=== PATIENT | female | born 1940 | race Caucasian/White ===

== ENCOUNTER → 2018-01-03 07:54 | Outpatient (CLI) | payer MEDICARE, SELFPAY ==
[2018-01-03 08:35] LABS: Add Manual Diff / Slide Review NO; Basophils Percent Auto 0.8 % (0-2); Eosinophils Percent Auto 2.4 % (2-4); Hemoglobin 12.7 g/dL (12.0-16.0); Lymphocytes Percent Auto 45.1 % (25-40); Mean Corpuscular HGB Conc 33.3 % (30-36); Mean Corpuscular Hemoglobin 30.3 PG (26-34); Monocytes Percent Auto 11.1 % (3-14); Neutrophils Absolute Auto 1600 /uL (3000-5900); Neutrophils Percent Auto 40.6 % (50-75); Platelet Count 239 X10^3/uL (150-400); Red Blood Cell Count 4.17 X10^6/uL (4.0-5.2); Red Cell Distribution Width 14.1 % (11.6-14.8); White Blood Cell Count 3.8 X10^3/uL (4.5-11.0)
[2018-01-03 09:19] LABS: Alanine Aminotransferase 28 IU/L (9-52); Albumin Globulin Ratio 1.5 (1.0-2.8); Alkaline Phosphatase 60 U/L (38-126); Aspartate Aminotransferase 22 IU/L (14-36); BUN Creatinine Ratio 22.9 (6-22); Bilirubin Total 0.5 mg/dL (0.2-1.3); Blood Urea Nitrogen 16 mg/dL (7-17); Calcium 9.2 mg/dL (8.4-10.2); Carbon Dioxide 28 mmol/L (22-32); Chloride 100 mmol/L (98-107); Cholesterol 204 mg/dL (140-199); Estimated Glomerular Filt Rate > 60.0 mL/min (>60); Globulin 2.7 g/dL (1.7-4.1); Glucose 90 mg/dL (80-110); HDL Cholesterol 97 mg/dL (40-60); HEMOLYSIS 21 (0-50); LDL Cholesterol Calculated 87 mg/dL (<100); Potassium 4.5 mmol/L (3.4-5.1); Sodium 137 mmol/L (137-145); Total Protein 6.7 g/dL (6.3-8.2); Triglycerides 102 mg/dL (35-150)
== END ==
PROVIDERS: PCP Internal Medicine; Visit Provider Internal Medicine
DX: E78.2 Mixed hyperlipidemia (principal); I95.9 Hypotension, unspecified
CPT/HCPCS: 36415; 80053; 80061; 85025

== ENCOUNTER → 2018-03-20 15:49 | Outpatient (CLI) | payer MEDICARE, SELFPAY ==
--- NOTE | 2018-03-20 | DI.MRI.S_ITS ---
PROCEDURE: MR LUMBAR SPINE WO CON INDICATIONS: Left leg pain TECHNIQUE: Noncontrast sagittal T1 spin echo and T2 fast echo, sagittal STIR, axial T1 and T2 fast spin echo through the lumbar spine. In cases with scoliosis, additional coronal T2 fast spin echo may be performed. COMPARISON: [facility], CR, XR LUMBAR SPINE WITH OLBIQUES PLUS FLEXION EXTENSION, 03/05/2018, 10:22. FINDINGS: Image quality: Excellent. Alignment and Curvature: There is normal bony alignment. Bone Marrow: Marrow is of normal overall signal. No acute vertebral body compression fractures. Spinal Cord: Conus medullaris terminates at the L1 level. Visualized cord demonstrates normal signal and size. Paraspinous Soft Tissues: No paravertebral masses. L1-L2: Preserved disc height. Mild disc desiccation. There is mild posterior disc bulge. The central canal is patent. No foraminal stenosis. L2-L3: Moderate loss of disc height and disc desiccation. There is broad posterior disc bulge and disc osteophyte complex. Superimposed right posterior paramedian disc protrusion. Hypertrophy of ligamentum flavum. The central canal is a moderate to severely narrowed. Moderate right and mild left foraminal stenosis. L3-L4: Mild loss of disc height and disc desiccation. There is broad posterior disc bulge and disc osteophyte complex. Hypertrophy of ligamentum flavum. The central canal is mildly narrowed. Mild bilateral foraminal stenosis. L4-L5: Mild loss of disc height and disc desiccation. There is broad posterior disc bulge and disc-osteophyte complex. Mild bilateral facet arthropathy and moderate hypertrophy of ligamentum flavum. The central canal is mildly narrowed. Moderate left and mild right foraminal stenosis. L5-S1: Mild loss of disc height and disc desiccation. There is broad posterior disc bulge and disc osteophyte complex. Mild bilateral facet arthropathy. The central canal is patent. Mild bilateral foraminal stenosis. IMPRESSION: 1. Multilevel degenerative disc disease and facet arthropathy as described. 2. [id number] central canal stenosis at L2-L3, and mild central canal stenosis at L3-L4 and L4-L5. 3. Multilevel foraminal stenosis as described. Dictated by: Lisset Soni M.D. on 03/20/2018 at 16:58 Transcribed by: CINDY on 03/20/2018 at 17:34 Approved by: Lisset Soni M.D. on 03/21/2018 at 9:09
== END ==
PROVIDERS: Family Provider Internal Medicine; PCP Internal Medicine; Visit Provider Physical Medicine & Rehabilitation Pain Medicine
DX: M54.5 Low back pain (principal); M79.605 Pain in left leg; M51.36 Other intervertebral disc degeneration, lumbar region; M48.061 Spinal stenosis, lumbar region without neurogenic claudication
CPT/HCPCS: 72148

== ENCOUNTER → 2019-06-21 09:11 | Outpatient (CLI) | payer MEDICARE, SELFPAY ==
[2019-06-21 10:10] LABS: Alanine Aminotransferase 22 IU/L (<35); Albumin 4.4 g/dL (3.5-5.0); Albumin Globulin Ratio 1.5 (1.0-2.8); Alkaline Phosphatase 79 U/L (38-126); Aspartate Aminotransferase 31 IU/L (14-36); BUN Creatinine Ratio 18.8 (6-22); Bilirubin Total 0.6 mg/dL (0.2-1.3); Blood Urea Nitrogen 15 mg/dL (7-17); Calcium 9.5 mg/dL (8.4-10.2); Carbon Dioxide 28 mmol/L (22-32); Chloride 104 mmol/L (98-107); Cholesterol 222 mg/dL (140-199); Estimated Glomerular Filt Rate > 60.0 mL/min (>60); Glucose 99 mg/dL (80-110); HDL Cholesterol 94 mg/dL (40-60); HEMOLYSIS < 15 (0-50); LDL Cholesterol Calculated 113 mg/dL (<100); Potassium 4.9 mmol/L (3.4-5.1); Sodium 140 mmol/L (137-145); Total Protein 7.4 g/dL (6.3-8.2); Triglycerides 76 mg/dL (35-150)
== END ==
PROVIDERS: PCP Internal Medicine; Visit Provider Internal Medicine
DX: Z13.1 Encounter for screening for diabetes mellitus (principal); Z13.220 Encounter for screening for lipoid disorders; Z13.6 Encounter for screening for cardiovascular disorders; E78.2 Mixed hyperlipidemia
CPT/HCPCS: 36415; 80053; 80061

== ENCOUNTER → 2020-06-19 07:54 | Outpatient (CLI) | payer MEDICARE, SELFPAY ==
[2020-06-19 09:01] LABS: Alanine Aminotransferase 28 IU/L (<35); Albumin 4.1 g/dL (3.5-5.0); Albumin Globulin Ratio 1.4 (1.0-2.8); Alkaline Phosphatase 71 U/L (38-126); Aspartate Aminotransferase 30 IU/L (14-36); BUN Creatinine Ratio 23.4 (6-22); Bilirubin Total 0.5 mg/dL (0.2-1.3); Blood Urea Nitrogen 18 mg/dL (7-17); Calcium 9.6 mg/dL (8.4-10.2); Carbon Dioxide 31 mmol/L (22-32); Chloride 104 mmol/L (98-107); Cholesterol 267 mg/dL (140-199); Estimated Glomerular Filt Rate > 60.0 mL/min (>60); Glucose 101 mg/dL (80-110); HDL Cholesterol 105 mg/dL (40-60); HEMOLYSIS < 15 (0-50); LDL Cholesterol Calculated 138 mg/dL (<100); Potassium 4.9 mmol/L (3.4-5.1); Sodium 136 mmol/L (137-145); Total Protein 7.1 g/dL (6.3-8.2); Triglycerides 121 mg/dL (35-150)
== END ==
PROVIDERS: PCP Internal Medicine; Referring Provider Internal Medicine; Visit Provider Internal Medicine
DX: E78.2 Mixed hyperlipidemia (principal)
CPT/HCPCS: 36415; 80053; 80061

== ENCOUNTER → 2021-06-25 07:25 | Outpatient (CLI) | payer MEDICARE, SELFPAY ==
[2021-06-25 09:21] LABS: Alanine Aminotransferase 21 IU/L (<35); Albumin Globulin Ratio 1.5 (1.0-2.8); Alkaline Phosphatase 59 U/L (38-126); Aspartate Aminotransferase 26 IU/L (14-36); BUN Creatinine Ratio 23.6 (6-22); Bilirubin Total 0.5 mg/dL (0.2-1.3); Blood Urea Nitrogen 17 mg/dL (7-17); Calcium 9.3 mg/dL (8.4-10.2); Carbon Dioxide 29 mmol/L (22-32); Chloride 103 mmol/L (98-107); Cholesterol 202 mg/dL (140-199); Estimated Glomerular Filt Rate > 60.0 mL/min (>60); Globulin 2.7 g/dL (1.7-4.1); Glucose 95 mg/dL (80-110); HDL Cholesterol 95 mg/dL (40-60); HEMOLYSIS < 15 (0-50); LDL Cholesterol Calculated 83 mg/dL (<100); Potassium 4.4 mmol/L (3.4-5.1); Sodium 137 mmol/L (137-145); Total Protein 6.7 g/dL (6.3-8.2); Triglycerides 119 mg/dL (35-150)
== END ==
PROVIDERS: PCP Internal Medicine; Referring Provider Internal Medicine; Visit Provider Internal Medicine
DX: E78.2 Mixed hyperlipidemia (principal)
CPT/HCPCS: 36415; 80053; 80061

== ENCOUNTER → 2021-07-06 13:37 | Outpatient (CLI) | payer MEDICARE, SELFPAY ==
--- NOTE | 2021-07-06 13:38 | DI.US.S_ITS ---
PROCEDURE: US ABDOMEN LIMITED INDICATIONS: RIGHT UPPER QUADRANT PAIN TECHNIQUE: Real-time focused scanning was performed of the abdomen, with image documentation. COMPARISON: None. FINDINGS: There is a mobile gallstone measuring approximately 2 cm in the gallbladder. No gallbladder wall thickening or pericholecystic fluid. The superintendent recreation reports a negative sonographic Payne's sign. The gallstone results in shadowing which obscures the common hepatic duct and common bile duct. No intrahepatic biliary ductal dilatation identified. Diffusely increased hepatic parenchymal echogenicity consistent with hepatic steatosis. The pancreatic head is subjectively mildly enlarged with indistinctness of the pancreatic duct. The pancreatic body and tail are not identified due to obscuration by bowel gas. IMPRESSION: Subjectively prominent appearance of the pancreatic head with an ill-defined appearance and poor delineation of the pancreatic duct. Consider a CT of the abdomen and pelvis for further characterization. Cholelithiasis with a large mobile gallstone measuring 2 cm. No findings of cholecystitis. Dictated by: Chidi Traore M.D. on 07/06/2021 at 16:36 Approved by: Chidi Traore M.D. on 07/06/2021 at 16:38
== END ==
PROVIDERS: PCP Internal Medicine; Referring Provider Internal Medicine; Visit Provider Internal Medicine
DX: R10.11 Right upper quadrant pain (principal); K80.20 Calculus of gallbladder without cholecystitis without obstruction
CPT/HCPCS: 76705

== ENCOUNTER → 2021-08-23 07:59 | Outpatient (CLI) | payer MEDICARE, SELFPAY ==
[2021-08-23 09:50] LABS: BUN Creatinine Ratio 22.1 (6-22); Blood Urea Nitrogen 19 mg/dL (7-17); Estimated Glomerular Filt Rate > 60.0 mL/min (>60)
== END ==
PROVIDERS: PCP Internal Medicine; Referring Provider Internal Medicine; Visit Provider Internal Medicine
DX: K80.20 Calculus of gallbladder without cholecystitis without obstruction (principal); R10.11 Right upper quadrant pain
CPT/HCPCS: 36415; 82565; 84520

== ENCOUNTER → 2021-08-24 07:26 | Outpatient (CLI) | payer MEDICARE, SELFPAY ==
--- NOTE | 2021-08-24 07:30 | DI.CT.S_ITS ---
PROCEDURE: CT ABDOMEN PELVIS W CON INDICATIONS: abd pain, gallstone, abnormal pancreas on US TECHNIQUE: After the administration of oral and IV contrast, axial sections were acquired from the lung bases to the pubic symphysis. Coronal and sagittal reformats were performed. For radiation dose reduction, the following was used: automated exposure control, adjustment of mA and/or kV according to patient size. COMPARISON: [facility], US, US ABDOMEN LIMITED, 07/06/2021, 15:41. [facility], CT, ABDOMEN/PELVIS WITH CONTRAST, 04/03/2007, 10:33. FINDINGS: Image quality: Excellent. Lung bases: Lung bases are clear. Small hiatal hernia. Heart: No significant findings. ABDOMEN: Liver: Normal size. Mild hepatic steatosis. Gallbladder: There is a calcified gallstone. No gallbladder wall thickening or pericholecystic fluid. Biliary ducts: No intrahepatic biliary dilation. Common bile duct measures 7 mm, which is at upper limits of normal. Pancreas: Pancreas is normal in morphology. No pancreatic mass. Prominent pancreatic duct measuring up to 2.3 mm. A 0.7 x 1.1 cm cyst is seen in the pancreatic uncinate process, new since the last exam dated 04/03/2007. Appendix is normal. Spleen: Normal size. There are multiple calcified granulomas in spleen. Adrenal Glands: Mild bilateral adrenal thickening without discrete adrenal mass. Kidneys and Ureters: Unremarkable. Stomach and Bowel: Stomach is mildly distended with an air-fluid level. Gastric antrum is mildly thickened. Small bowel loops and colon are unremarkable. Moderate amount of stool in colon. Peritoneum: There is mesenteric stranding. No abnormal intraperitoneal fluid. No free air. Ventral Wall: No hernia. Abdominal Nodes: No retroperitoneal or mesenteric adenopathy by size criteria. Slightly prominent mesenteric lymph nodes are noted with associated mesenteric stranding. Vessels: Aorta and inferior vena cava are normal in size. PELVIS: Pelvic Organs: Uterus is normal in size. There is a 1.8 x 2.4 cm heterogeneously enhancing mass in uterus, most likely a uterine fibroid. Bladder: Unremarkable. Pelvic Nodes: No enlarged lymph nodes. Miscellaneous: No inguinal hernias are seen. Bones: Moderate to severe degenerative changes are present in lumbar spine. IMPRESSION: 1. There is a 0.7 x 1.1 cm cyst in the uncinate process of pancreas, which is new since 04/03/2007. Differential diagnosis include a benign cyst versus a cystic neoplasm such as IPMN. Command a short-term follow-up pancreatic protocol MRI or CT to document stability. 2. Cholelithiasis. 3. 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 4. Mildly distended stomach with an air-fluid level. There is mild gastric antral thickening, which could be secondary to gastritis or artifact. 5. Hepatic steatosis. 6. Small hiatal hernia. 7. A 1.8 x 2.4 cm heterogeneous enhancing mass in uterus, most likely a uterine fibroid. Recommend a pelvic CT for follow-up evaluation. 8. Multiple calcified granulomas in spleen. Dictated by: Lisset Soni M.D. on 08/24/2021 at 8:35 Approved by: Lisset Soni M.D. on 08/24/2021 at 11:17
== END ==
PROVIDERS: PCP Internal Medicine; Referring Provider Internal Medicine; Visit Provider Internal Medicine
DX: R94.8 Abnormal results of function studies of other organs and systems (principal); K86.2 Cyst of pancreas; K80.20 Calculus of gallbladder without cholecystitis without obstruction; N85.9 Noninflammatory disorder of uterus, unspecified; D73.89 Other diseases of spleen; R10.11 Right upper quadrant pain; K76.0 Fatty (change of) liver, not elsewhere classified; K44.9 Diaphragmatic hernia without obstruction or gangrene
CPT/HCPCS: 74177; Q9967

== ENCOUNTER → 2021-12-17 11:00 | Outpatient (CLI) | payer MEDICARE, SELFPAY ==
--- NOTE | 2021-12-17 11:02 | DI.MRI.S_ITS ---
PROCEDURE: MR ABDOMEN WO/W CON INDICATIONS: pancreatic mass TECHNIQUE: Coronal HASTE, axial 2D FLASH in- and [id number]; axial breath-hold T2 FSE with fat saturation from the hepatic dome to the iliac crests. Oblique coronal thin-slice and radial thick slab HASTE through the biliary system. Dynamic axial VIBE during administration of contrast. Post-contrast coronal VIBE or 2D FLASH with fat saturation from the hepatic dome to the iliac crests. Optional diffusion weighted imaging and ADC may be performed. COMPARISON: [facility], US, US ABDOMEN LIMITED, 07/06/2021, 15:41. [facility], CT, CT ABDOMEN PELVIS W CON, 08/24/2021, 7:38. FINDINGS: Image quality: Excellent. Pancreas and biliary system: In the head of the pancreas, there is a cystic mass measuring about 1.1 by 1.0 by 0.9 cm with a few fine internal septations. There is a questionable connection to a nondilated accessory duct in the uncinate process. Postcontrast, there is no internal or nodular enhancement. Septations are isoenhancing to adjacent pancreas. No increased mural enhancement. There is no pancreatic ductal, intra or extrahepatic biliary ductal dilatation. The common duct tapers normally to the ampulla. There are no intrinsic filling defects. There is a very low insertion of the cystic duct on the common duct. Solid organs: Liver is normal in size and enhancement. Gallbladder is partially decompressed, demonstrates a normal wall thickness, and contains nonobstructing stone in the mid body measuring 1.7 cm. Spleen is normal in size and enhancement. No adrenal nodules. Kidneys are normal in size and enhancement, without hydronephrosis. Nodes and vessels: No retroperitoneal or mesenteric adenopathy by size criteria. Mildly prominent flat lymph nodes are present within the central small bowel mesentery surrounded by fat stranding. Aorta and inferior vena cava are normal in size. Bowel and peritoneum: There is trace fluid centrally in the presacral region and extending anteriorly into the mesentery, uncertain etiology. Small hiatal hernia is present. Visible bowel loops appear normal without obstruction. There is encapsulation and fat stranding at the base of the mesentery as seen by CT. Lung bases: No basal pleural effusions. Heart size is normal. Bones and soft tissues: No ventral hernias. Bone marrow is normal in overall signal. IMPRESSION: 1. Finally septated 1.1 cm cystic pancreatic mass with probable communication to a nondilated accessory duct in the uncinate process. Differential diagnosis includes IPMN or tiny serous cystadenoma. Initial follow-up in six months is recommended to document stability. 2. Cholelithiasis. 3. Findings of mesenteric panniculitis. 4. Trace lower midline retroperitoneal fluid of uncertain etiology. Correlate clinically and recommend attention to this area on follow-up studies. Dictated by: Liz Truong M.D. on 12/17/2021 at 13:01 Approved by: Liz Truong M.D. on 12/17/2021 at 13:50
== END ==
PROVIDERS: PCP Internal Medicine; Referring Provider Internal Medicine; Visit Provider Internal Medicine
DX: K86.89 Other specified diseases of pancreas (principal); K80.20 Calculus of gallbladder without cholecystitis without obstruction; K65.4 Sclerosing mesenteritis
CPT/HCPCS: 74183

== ENCOUNTER → 2022-06-14 11:29 | Outpatient (CLI) | payer MEDICARE, SELFPAY ==
[2022-06-14 13:00] LABS: BUN Creatinine Ratio 24.3 (6-22); Blood Urea Nitrogen 18 mg/dL (7-17); Calcium 9.5 mg/dL (8.4-10.2); Carbon Dioxide 28 mmol/L (22-32); Chloride 102 mmol/L (98-107); Estimated Glomerular Filt Rate > 60 mL/min (>60); Glucose 95 mg/dL (80-110); HEMOLYSIS < 15 (0-50); Potassium 4.5 mmol/L (3.4-5.1); Sodium 139 mmol/L (137-145)
== END ==
PROVIDERS: PCP Internal Medicine; Referring Provider Internal Medicine; Visit Provider Internal Medicine
DX: Z01.812 Encounter for preprocedural laboratory examination (principal)
CPT/HCPCS: 36415; 80048

== ENCOUNTER → 2022-06-16 09:56 | Outpatient (CLI) | payer MEDICARE, SELFPAY ==
--- NOTE | 2022-06-16 | DI.CT.S_ITS ---
PROCEDURE: CT ABDOMEN PANCREATIC PROTOCOL INDICATIONS: pancreatic mass TECHNIQUE: After the administration of intravenous contrast, 3 mm thick pancreatic-phase images acquired from the diaphragm to the iliac crests. 3 mm thick coronal and sagittal reformats were performed. For radiation dose reduction, the following was used: automated exposure control, adjustment of mA and/or kV according to patient size. COMPARISON: [facility], CT, CT ABDOMEN PELVIS W CON, 08/24/2021, 7:38. [facility], MR, MR ABDOMEN WO/W CON, 12/17/2021, 11:52. FINDINGS: Image quality: Adequate. Lung bases: No pleural effusion. Pancreas: Redemonstrated cyst at the pancreatic head/uncinate process, approximately 1.3 x 0.8 cm (series 2, image 39) unchanged in size when remeasured on the prior MRI. No dilation of the main pancreatic duct. Suspect that pancreas divisum variant anatomy is present. Other solid organs: Liver is normal in size and enhancement. Cholelithiasis present as before. Biliary system is non dilated. Scattered splenic calcifications likely representing granulomata. No adrenal nodules. Kidneys are normal in size and enhancement, without hydronephrosis. Peritoneum and bowel: Visualized large and small bowel is non-dilated. 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 IMPRESSION: Previously demonstrated cystic lesion at the pancreatic head/uncinate process is not significantly changed in the interval. As described previously, it could represent a side branch IPMN but other cystic neoplasms are not excluded. Per ACR incidental findings guidelines, imaging follow-up is recommended in 2 years, could be performed sooner at clinical discretion. Dictated by: Coy Wilkinson M.D. on 06/16/2022 at 17:53 Approved by: Coy Wilkinson M.D. on 06/16/2022 at 18:15
== END ==
PROVIDERS: PCP Internal Medicine; Referring Provider Internal Medicine; Visit Provider Internal Medicine
DX: K86.89 Other specified diseases of pancreas (principal)
CPT/HCPCS: 74160; Q9967

== ENCOUNTER → 2023-05-17 09:45 | Outpatient (CLI) | payer MEDICARE, SELFPAY ==
[2023-05-17 14:47] LABS: Influenza A - CEPHEID Flu A NEGATIVE (NEGATIVE); Influenza B - CEPHEID Flu B NEGATIVE (NEGATIVE); Respiratory Syncytial Virus Negative (Negative)
[2023-05-17 15:17] LABS: COVID-19 CEPHEID 4-PLEX PCR Negative (Negative)
== END ==
PROVIDERS: PCP Internal Medicine; Visit Provider Physician Assistant
DX: R06.02 Shortness of breath (principal)
CPT/HCPCS: 0241U

== ENCOUNTER → 2023-05-17 09:51 | Outpatient (CLI) | payer MEDICARE, SELFPAY ==
--- NOTE | 2023-05-17 09:53 | DI.RAD.S_ITS ---
PROCEDURE: XR CHEST 2V INDICATIONS: SOB last week, hx latent TB TECHNIQUE: 2 views of the chest were acquired. COMPARISON: [facility], , CHEST 2 VIEW, 11/11/2016, 11:07. FINDINGS: Surgical changes and devices: None. Lungs and pleura: Lungs are clear. No pleural effusions or pneumothorax. Mediastinum: Mediastinal contours are normal. Heart size is normal. Bones and chest wall: No suspicious bony abnormalities. Soft tissues appear unremarkable. IMPRESSION: No acute cardiopulmonary findings. Dictated by: Mar Houston M.D. on 05/17/2023 at 12:30 Approved by: Mar Houston M.D. on 05/17/2023 at 12:32
== END ==
PROVIDERS: PCP Internal Medicine; Referring Provider Physician Assistant; Visit Provider Physician Assistant
DX: Z22.7 Latent tuberculosis (principal); R06.02 Shortness of breath
CPT/HCPCS: 0241U; 71046; 93005

== ENCOUNTER → 2023-06-12 08:02 | Outpatient (CLI) | payer MEDICARE, SELFPAY ==
[2023-06-12 08:35] LABS: Add Manual Diff / Slide Review NO; Basophils Absolute Auto 0 /uL (0-100); Basophils Percent Auto 0.9 % (0-2); Eosinophils Absolute Auto 100 /uL (0-450); Hematocrit 38.5 % (36-46); Hemoglobin 12.9 g/dL (12.0-16.0); Lymphocytes Absolute Auto 1700 /uL (1100-4500); Lymphocytes Percent Auto 38.3 % (25-40); Mean Corpuscular HGB Conc 33.5 % (30-36); Mean Corpuscular Hemoglobin 30.1 PG (26-34); Monocytes Absolute Auto 500 /uL (0-900); Monocytes Percent Auto 11.1 % (3-14); Neutrophils Absolute Auto 2100 /uL (1500-7000); Neutrophils Percent Auto 47.7 % (50-75); Platelet Count 256 X10^3/uL (150-400); Red Blood Cell Count 4.28 X10^6/uL (4.0-5.2); Red Cell Distribution Width 14.2 % (11.6-14.8); White Blood Cell Count 4.4 X10^3/uL (4.5-11.0)
[2023-06-12 08:40] LABS: D Dimer 1305 ng/ml (<500)
[2023-06-12 08:43] LABS: Cholesterol 230 mg/dL (140-199); HDL Cholesterol 90 mg/dL (40-60); LDL Cholesterol Calculated 117 mg/dL (<100); Triglycerides 117 mg/dL (35-150)
[2023-06-12 08:46] LABS: Alanine Aminotransferase 20 IU/L (<35); Albumin 4.4 g/dL (3.5-5.0); Albumin Globulin Ratio 1.3 (1.0-2.8); Alkaline Phosphatase 73 U/L (38-126); Aspartate Aminotransferase 28 IU/L (14-36); Bilirubin Total 0.7 mg/dL (0.2-1.3); Blood Urea Nitrogen 18 mg/dL (7-17); Calcium 9.7 mg/dL (8.4-10.2); Carbon Dioxide 28 mmol/L (22-32); Chloride 103 mmol/L (98-107); Estimated Glomerular Filt Rate > 60 mL/min (>60); Globulin 3.4 g/dL (1.7-4.1); Glucose 99 mg/dL (80-110); HEMOLYSIS < 15 (0-50); Potassium 4.4 mmol/L (3.4-5.1); Sodium 136 mmol/L (137-145); Total Protein 7.8 g/dL (6.3-8.2)
[2023-06-12 08:53] LABS: NT-proBNP (BNP-Adult 18+) 98 pg/mL (<450)
[2023-06-12 09:22] LABS: TSH w/ Reflex to FT4 5.27 uIU/mL (0.47-4.68)
[2023-06-12 09:48] LABS: Free T4, Direct Thyroxine 0.92 ng/dL (0.78-2.19)
== END ==
PROVIDERS: PCP Internal Medicine; Referring Provider Physician Assistant; Visit Provider Physician Assistant
DX: R06.02 Shortness of breath (principal); E78.2 Mixed hyperlipidemia
CPT/HCPCS: 36415; 80053; 80061; 83880; 84439; 84443; 85025; 85379

== ENCOUNTER → 2024-05-14 10:02 | Outpatient (CLI) | payer MEDICARE, SELFPAY ==
--- NOTE | 2024-05-14 10:05 | DI.CT.S_ITS ---
PROCEDURE: CT ABDOMEN PANCREATIC PROTOCOL INDICATIONS: Pancreatic Cyst F/U TECHNIQUE: Both before and after the administration of intravenous contrast, 3 mm thick pancreatic-phase images acquired from the diaphragm to the iliac crests. 3 mm thick coronal and sagittal reformats were performed. For radiation dose reduction, the following was used: automated exposure control, adjustment of mA and/or kV according to patient size. COMPARISON: [facility], CT, CT ABDOMEN PANCREATIC PROTOCOL, 06/16/2022, 10:42. FINDINGS: Image quality: Diagnostic. Lower chest: Annular calcification of mitral valve. Small hiatal hernia. ABDOMEN: Pancreas: No solid mass. No ductal dilation. Stable 1.3 centimeter cystic lesion in the pancreatic head/uncinate process, with close association to the pancreatic duct. No nodularity. Liver: No solid mass. Gallbladder: Cholelithiasis without wall thickening or adjacent fat stranding to suggest acute cholecystitis. Biliary ducts: No biliary dilation. Adrenal Glands: No nodules. Spleen: Size is within normal limits. Calcified granuloma. Kidneys and Ureters: No hydronephrosis. No solid mass. No complex renal cystic lesion which requires follow up. Stomach and Bowel: Normal colonic caliber, without significant wall thickening. Peritoneum: No abnormal intraperitoneal fluid. No free air. Stable central mesenteric fat stranding. Ventral Wall: No hernia. Abdominal Nodes: No retroperitoneal or mesenteric adenopathy by size criteria. Vessels: Aorta and inferior vena cava are normal in size. Bones: No aggressive osseous abnormality. IMPRESSION: Stable 1.2 centimeter cystic lesion in the pancreatic head/uncinate process, probably representing a side branch IPMN. No suspicious features. Additional for 2 year follow-up should be considered per consensus guidelines. Cholelithiasis without wall thickening or adjacent fat stranding to suggest acute cholecystitis. Central mesenteric fat stranding with prominent mesenteric lymph nodes. 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 Consider further workup. Dictated by: Forrest Parker M.D. on 05/14/2024 at 12:59 Approved by: Forrest Parekr M.D. on 05/14/2024 at 13:07
[2024-05-14 10:55] LABS: Estimated Glomerular Filt Rate > 60 mL/min (>60)
== END ==
PROVIDERS: Radiology Diagnostic Radiology; PCP Internal Medicine; Referring Provider Internal Medicine; Visit Provider Internal Medicine
DX: K86.2 Cyst of pancreas (principal); I34.81 Nonrheumatic mitral (valve) annulus calcification; K44.9 Diaphragmatic hernia without obstruction or gangrene; K80.20 Calculus of gallbladder without cholecystitis without obstruction
CPT/HCPCS: 36415; 74170; 82565; Q9967

== ENCOUNTER → 2024-05-24 08:29 | Outpatient (CLI) | payer MEDICARE, SELFPAY ==
[2024-05-24 10:08] LABS: Alanine Aminotransferase 25 IU/L (<35); Albumin 4.1 g/dL (3.5-5.0); Albumin Globulin Ratio 1.6 (1.0-2.8); Alkaline Phosphatase 80 U/L (38-126); Aspartate Aminotransferase 29 IU/L (14-36); BUN Creatinine Ratio 20.9 (6-22); Bilirubin Total 0.8 mg/dL (0.2-1.3); Blood Urea Nitrogen 18 mg/dL (7-17); Calcium 9.4 mg/dL (8.4-10.2); Carbon Dioxide 26 mmol/L (22-32); Chloride 104 mmol/L (98-107); Cholesterol 219 mg/dL (140-199); Estimated Glomerular Filt Rate > 60 mL/min (>60); Globulin 2.6 g/dL (1.7-4.1); Glucose 95 mg/dL (80-110); HDL Cholesterol 99 mg/dL (40-60); HEMOLYSIS < 15 (0-50); LDL Cholesterol Calculated 100 mg/dL (<100); Potassium 4.6 mmol/L (3.4-5.1); Sodium 135 mmol/L (137-145); Total Protein 6.7 g/dL (6.3-8.2); Triglycerides 102 mg/dL (35-150)
[2024-05-24 10:26] LABS: Free T4, Direct Thyroxine 0.84 ng/dL (0.78-2.19)
[2024-05-24 10:39] LABS: Thyroid Stimulating Hormone 5.35 uIU/mL (0.47-4.68)
== END ==
PROVIDERS: PCP Internal Medicine; Referring Provider Internal Medicine; Visit Provider Internal Medicine
DX: K86.89 Other specified diseases of pancreas (principal); E78.2 Mixed hyperlipidemia
CPT/HCPCS: 36415; 80053; 80061; 84439; 84443; 84481

== ENCOUNTER → 2024-06-11 14:06 | Outpatient (CLI) | payer MEDICARE, SELFPAY ==
[2024-06-11 15:27] LABS: Add Manual Diff / Slide Review NO; Basophils Absolute Auto 0 /uL (0-100); Basophils Percent Auto 0.8 % (0-2); Eosinophils Absolute Auto 200 /uL (0-450); Eosinophils Percent Auto 3.9 % (2-4); Hematocrit 37.7 % (36-46); Hemoglobin 12.5 g/dL (12.0-16.0); Lymphocytes Absolute Auto 1800 /uL (1100-4500); Lymphocytes Percent Auto 39.9 % (25-40); Mean Corpuscular HGB Conc 33.2 % (30-36); Mean Corpuscular Hemoglobin 30.4 PG (26-34); Mean Corpuscular Volume 91.7 fL (80-100); Monocytes Absolute Auto 500 /uL (0-900); Neutrophils Absolute Auto 2100 /uL (1500-7000); Neutrophils Percent Auto 45.4 % (50-75); Platelet Count 264 X10^3/uL (150-400); Red Cell Distribution Width 14.4 % (11.6-14.8); White Blood Cell Count 4.6 X10^3/uL (4.5-11.0)
[2024-06-11 15:48] LABS: C-Reactive Protein Quant < 0.5 mg/dL (<1.0)
[2024-06-11 16:23] LABS: Erythrocyte Sedimentation Rate 9 MM/HR (0-20)
== END ==
PROVIDERS: PCP Internal Medicine; Referring Provider Internal Medicine; Visit Provider Internal Medicine
DX: R59.1 Generalized enlarged lymph nodes (principal); K86.89 Other specified diseases of pancreas; E78.2 Mixed hyperlipidemia
CPT/HCPCS: 36415; 85025; 85651; 86140